=== PATIENT | female | born 1975 | race Caucasian/White ===

== ENCOUNTER 2023-09-30 10:43 | Emergency (ER) | payer MEDICAID, OTHER ==
[~2023-09-30] VITALS: Ht 165.1 cm; Wt 64.9 kg
[2023-09-30 11:11] VITALS: BP 97/52; PULSE 66; RESP 16; TEMP 97.9; O2SAT 98
[2023-09-30] MEDS ORDERED: IBUP-1842 PO (12:22)
[2023-09-30] MEDS ORDERED: CARB15DR61 OT (12:22)
[2023-09-30 12:45] VITALS: BP 97/52; PULSE 66; RESP 16; TEMP 97.9; O2SAT 98
== END 2023-09-30 12:45 | disposition home or self-care (01) ==
LOC: MED 10:43
DX: H61.22 Impacted cerumen, left ear (principal); Z79.899 Other long term (current) drug therapy
CPT/HCPCS: 99282